=== PATIENT | male | born 1965 | race Caucasian/White ===

== ENCOUNTER 2020-03-14 14:24 | Emergency (ER) | payer OTHER ==
--- NOTE | 2020-03-14 15:28 | EDM.PDOC ---
<Ramiro Uribe - Last Filed: 03/14/20 15:12> ED HPI GENERAL MEDICAL PROBLEM - General Chief Complaint: Abdominal Pain Stated Complaint: ABDOMINAL PAIN Time Seen by Provider: 03/14/20 14:39 Source of Information: Reports: Patient - History of Present Illness INITIAL COMMENTS - FREE TEXT/NARRATIVE: 54 year-old white male comes to the emergency department this afternoon with c omplaints of sudden onset of abdominal pain and dysuria. Patient has a history of 1 episode of diverticulitis after having abdominal hernia repair. He was given antibiotics which resolved this symptoms and he has remained symptom free until this morning. Patient reports that on Saturday night he had eaten a large amount of pistachio nuts. Patient reports that he developed sudden onset of right lower abdominal pain this morning around 0100. The pain woke him up. He had no pain prior to going to bed. He had 6-7 soft nonwatery stools this morning with his last one around 0700. Patient also states that he has had difficulty voiding and that he has been unable to start a stream as well as difficulty emptying bladder fully. He last voided around 1300 today. Drinking water or fluids makes the pain in his right lower abdomen worse. Patient has no complaints of chills, fever, nausea, or abnormal muscle weakness. Lower Abdomen Pain Score (Numeric/FACES): 8 - Related Data Allergies Allergy/AdvReac Type Severity Reaction Status Date / Time codeine Allergy Severe Headache Verified 03/14/20 14:49 Home Meds: Home Meds Amoxicillin/Clavulanate K [Augmentin 875-125 MG] 1 tab PO BID #20 tablet 03/14/20 [Rx] Past Medical History HEENT History: Reports: Impaired Vision Gastrointestinal History: Reports: Diverticulosis (Cleared with antibiotics and has been symptom free until now.) Musculoskeletal History: Reports: Arthritis, Back Pain, Chronic - Past Surgical History GI Surgical History: Reports: Hernia, Inguinal Musculoskeletal Surgical History: Reports: Other (See Below) Other Musculoskeletal Surgeries/Procedures:: L leg sx Social & Family History - Family History Family Medical History: Noncontributory - Tobacco Use Smoking Status *Q: Current Every Day Smoker Years of Tobacco use: 35 Packs/Tins Daily: 1 - Caffeine Use Caffeine Use: Reports: Coffee - Recreational Drug Use Recreational Drug Use: No ED ROS GENERAL - Review of Systems Review Of Systems: See Below Constitutional: Reports: No Symptoms HEENT: Reports: No Symptoms Respiratory: Reports: No Symptoms Cardiovascular: Reports: No Symptoms GI/Abdominal: Reports: Abdominal Pain (RLQ pain that radiates throughout the lower abdomen), Bloody Stool (Streaks of gelatinous bright red blood noted in stool). Denies: Melena, Nausea, Stool Incontinence, Vomiting : Reports: Dysuria (Difficulty begining and maintaining a stream. Feels like he is not able to fully empty his bladder.), Frequency Musculoskeletal: Reports: No Symptoms Skin: Reports: No Symptoms Neurological: Reports: No Symptoms Psychiatric: Reports: No Symptoms ED EXAM, RENAL/ - Physical Exam Exam: See Below Exam Limited By: No Limitations General Appearance: Alert, WD/WN, No Apparent Distress Throat/Mouth: Normal Inspection, Normal Lips, Normal Teeth, Normal Gums, Normal Oropharynx, Normal Voice, No Airway Compromise Respiratory/Chest: No Respiratory Distress, Lungs Clear, Normal Breath Sounds, No Accessory Muscle Use, Chest Non-Tender Cardiovascular: Normal Peripheral Pulses, Regular Rate, Rhythm, No Edema, No Gallop, No JVD, No Murmur, No Rub GI/Abdominal: Normal Bowel Sounds, Distended, Tender (RLQ pain, increased pain with deep palpation to RLQ midline. ) Neurological: Alert, Oriented, CN II-XII Intact, Normal Cognition, Normal Gait, No Motor/Sensory Deficits Psychiatric: Normal Affect, Normal Mood Skin Exam: Warm, Dry, Intact, Normal Color, No Rash Course - Orders/Labs/Meds Orders: Will order CBC, CMP, CRP, UA, CT of ABD & pelvis with IV contrast, and Reglan. Departure - Departure Disposition: Home, Self-Care 01 Clinical Impression: Diverticulitis of sigmoid colon - Discharge Information Prescriptions: Amoxicillin/Clavulanate K [Augmentin 875-125 MG] 1 tab PO BID #20 tablet Instructions: Diverticulitis, [id number] Referrals: Lexi Duran MD [Primary Care Provider] - Forms: ED Department Discharge Additional Instructions: You were evaluated in the ER today regarding your lower abdominal pain. You had a CT performed, along with some lab work, which demonstrated diverticulitis of the sigmoid colon. You had 1 dose of IV antibiotics given in the ER, and will be started on oral antibiotics on outpatient basis for management of this. This will Augmentin, 1 tab BID x 10 days. This antibiotic can cause diarrhea, we recommend that you take a probiotic while using this medication. Please return to the ER at any time if symptoms change or worsen. Sepsis Event Note (ED) - Evaluation Sepsis Screening Result: No Definite Risk <America Mckee - Last Filed: 03/14/20 16:50> Course - Vital Signs Last Recorded V/S: Last Vital Signs Temp 97.7 F 03/14/20 14:46 Pulse 85 03/14/20 14:46 Resp 19 03/14/20 14:46 BP 141/90 H 03/14/20 14:46 Pulse Ox 97 03/14/20 14:46 - Orders/Labs/Meds Orders: Active Orders 24 hr Category Date Time Status Bladder Scan [RC] ASDIRECTED Care 03/14/20 15:30 Ordered Peripheral IV Care [RC] . DIRECTED Care 03/14/20 15:24 Ordered CBC WITH AUTO DIFF [HEME] Stat Lab 03/14/20 15:24 Ordered Levofloxacin/Dextrose 5%-Water [Levaquin in D5W 750 MG/ Med 03/14/20 16:35 Ordered 150 ML] 750 mg Premix Bag 1 bag IV ONETIME Sodium Chloride 0.9% [Saline Flush] Med 03/14/20 15:24 Ordered 10 ml FLUSH ASDIRECTED PRN Peripheral IV Insertion Adult [OM.PC] Routine Oth 03/14/20 15:23 Ordered Medication Orders Levofloxacin/Dextrose 750 mg/ (Premix) 150 mls @ 100 mls/hr IV ONETIME ONE Stop: 03/14/20 18:04 Sodium Chloride (Saline Flush) 10 ml FLUSH ASDIRECTED PRN PRN Reason: Keep Vein Open Last Admin: 03/14/20 16:03 Dose: 10 ml Documented by: Admin: 03/14/20 15:45 Dose: 10 ml Documented by: ALON Labs: Laboratory Tests 03/14/20 03/14/20 03/14/20 Range/Units 15:25 15:45 15:45 WBC 14.67 H (4.23-9.07) K/mm3 RBC 5.37 (4.63-6.08) M/mm3 Hgb 15.8 (13.7-17.5) gm/dl Hct 46.3 (40.1-51.0) % MCV 86.2 (79.0-92.2) fl MCH 29.4 (25.7-32.2) pg MCHC 34.1 (32.2-35.5) g/dl RDW Std Deviation 44.0 H (35.1-43.9) fL Plt Count 333 (163-337) K/mm3 MPV 8.4 L (9.4-12.3) fl Neut % (Auto) 82.2 H (34.0-67.9) % Lymph % (Auto) 10.3 L (21.8-53.1) % [place] % (Auto) 5.6 (5.3-12.2) % Eos % (Auto) 1.6 (0.8-7.0) Baso % (Auto) 0.1 (0.1-1.2) % Neut # (Auto) 12.06 H (1.78-5.38) K/mm3 Lymph # (Auto) 1.51 (1.32-3.57) K/mm3 [place] # (Auto) 0.82 (0.30-0.82) K/mm3 Eos # (Auto) 0.23 (0.04-0.54) K/mm3 Baso # (Auto) 0.02 (0.01-0.08) K/mm3 Sodium 137 (136-145) mEq/L Potassium 3.6 (3.5-5.1) mEq/L Chloride 103 (98-107) mEq/L Carbon Dioxide 25 (21-32) mEq/L Anion Gap 12.6 (5-15) BUN 15 (7-18) mg/dL Creatinine 1.0 (0.7-1.3) mg/dL Est Cr Clr Drug Dosing 102.10 mL/min Estimated GFR (MDRD) > 60 (>60) mL/min BUN/Creatinine Ratio 15.0 (14-18) Glucose 100 (74-106) mg/dL Calcium 8.9 (8.5-10.1) mg/dL Total Bilirubin 0.7 (0.2-1.0) mg/dL AST 20 (15-37) U/L ALT 33 (16-63) U/L Alkaline Phosphatase 70 (46-116) U/L C-Reactive Protein 2.9 H* (<1.0) mg/dL Total Protein 7.2 (6.4-8.2) g/dl Albumin 3.6 (3.4-5.0) g/dl Globulin 3.6 gm/dL Albumin/Globulin Ratio 1.0 (1-2) Urine Color Light yellow (Yellow) Urine Appearance Clear (Clear) Urine pH 6.0 (5.0-8.0) Ur Specific [place] 1.020 (1.005-1.030) Urine Protein Negative (Negative) Urine Glucose (UA) Negative (Negative) Urine Ketones Negative (Negative) Urine Occult Blood Negative (Negative) Urine Nitrite Negative (Negative) Urine Bilirubin Negative (Negative) Urine Urobilinogen 0.2 (0.2-1.0) Ur Leukocyte Esterase Negative (Negative) Urine RBC Not seen (0-5) /hpf Urine WBC 0-5 (0-5) /hpf Ur Squamous Epith Cells Not seen (0-5) /hpf Urine Bacteria Rare (FEW) /hpf Urine Mucus Not seen (FEW) /hpf Meds: Medications Generic Name Dose Route Start Last Admin Trade Name Erma PRN Reason Stop Dose Admin Levofloxacin/Dextrose 750 mg/ 150 mls @ 100 mls/hr 03/14/20 16:35 Premix IV 03/14/20 18:04 ONETIME ONE Sodium Chloride 10 ml 03/14/20 15:24 03/14/20 16:03 Saline Flush FLUSH 10 ml ASDIRECTED PRN Administration Keep Vein Open Discontinued Medications Generic Name Dose Route Start Last Admin Trade Name Erma PRN Reason Stop Dose Admin Iopamidol 100 ml 03/14/20 15:41 03/14/20 16:02 Isovue-300 (61%) IVPUSH 03/14/20 15:42 100 ml ONETIME ONE Administration Iopamidol 25 ml 03/14/20 15:41 03/14/20 16:02 Isovue-300 (61%) IVPUSH 03/14/20 15:42 25 ml ONETIME ONE Administration Metoclopramide HCl 10 mg 03/14/20 15:29 Reglan IVPUSH 03/14/20 15:30 ONETIME ONE Sodium Chloride 10 ml 03/14/20 15:41 Saline Flush FLUSH 03/14/20 15:42 ONETIME ONE - Re-Assessments/Exams Free Text/Narrative Re-Assessment/Exam: 03/14/20 16:06 I have read and reviewed the student's HPI and examined the patient and agree with BOBBY Mcintosh-student. Have ordered abdomen pelvis CT with IV contrast, basic labs, and IV to be placed at this time, patient is denying nausea or pain meds. 03/14/20 16:37 Patient's laboratory evaluation demonstrates a white count of 14.67 with 80% neutrophils on auto differential, metabolic panel essentially normal, CRP is 2.9 which is elevated. Urinalysis is negative. Abdomen pelvis CT demonstrates bowel wall thickening within the sigmoid colon with surrounding inflammatory change, felt compatible to diverticulitis within the sigmoid colon. Patient will be given 750 mg IV Levaquin for initial management. Patient will be sent home with some pain medication and oral antibiotics after the IV medication has been given time to run. Departure - Departure Time of Disposition: 16:39 Condition: Good - Discharge Information *PRESCRIPTION DRUG MONITORING PROGRAM REVIEWED*: Yes *COPY OF PRESCRIPTION DRUG MONITORING REPORT IN PATIENT MARIANO: No Sepsis Event Note (ED) - Focused Exam Vital Signs: Vital Signs Temp Pulse Resp BP Pulse Ox 03/14/20 14:46 97.7 F 85 19 141/90 H 97 - My Orders Last 24 Hours: My Active Orders 03/14/20 15:23 Peripheral IV Insertion Adult [OM.PC] Routine 03/14/20 15:24 Peripheral IV Care [RC] . DIRECTED CBC WITH AUTO DIFF [HEME] Stat Sodium Chloride 0.9% [Saline Flush] 10 ml FLUSH ASDIRECTED PRN 03/14/20 15:30 Bladder Scan [RC] ASDIRECTED 03/14/20 16:35 Levofloxacin/Dextrose 5%-Water [Levaquin in D5W 750 MG/150 ML] 750 mg Premix Bag 1 bag IV ONETIME - Assessment/Plan Last 24 Hours: My Active Orders 03/14/20 15:23 Peripheral IV Insertion Adult [OM.PC] Routine 03/14/20 15:24 Peripheral IV Care [RC] . DIRECTED CBC WITH AUTO DIFF [HEME] Stat Sodium Chloride 0.9% [Saline Flush] 10 ml FLUSH ASDIRECTED PRN 03/14/20 15:30 Bladder Scan [RC] ASDIRECTED 03/14/20 16:35 Levofloxacin/Dextrose 5%-Water [Levaquin in D5W 750 MG/150 ML] 750 mg Premix Bag 1 bag IV ONETIME
[2020-03-14] MEDS ORDERED: Metoclopramide 10 MG/2 ML SDV IVPUSH ONE (15:29)
[2020-03-14] MEDS ORDERED: Sodium Chloride 0.9% 10 ML Syringe FLUSH ONE (15:41)
[2020-03-14] MEDS ORDERED: Iopamidol 612 MG/ML 50 ML SDV IVPUSH ONE (15:41)
[2020-03-14] MEDS ORDERED: Iopamidol 612 MG/ML 100 ML Bottle IVPUSH ONE (15:41)
[2020-03-14] MEDS: Sodium Chloride 0.9% 10 ML Syringe FLUSH PRN ×2 (15:45→16:03)
--- NOTE | 2020-03-14 16:25 | CT ---
CT abdomen and pelvis Technique: Multiple axial sections were obtained from above the dome of the diaphragm inferiorly through the pubic symphysis. Intravenous contrast was utilized. No oral contrast has been given. Findings: Areas of pleural thickening are noted within the right lung base with adjacent parenchymal scarring. Liver contains no focal abnormality. Spleen appears within normal limits. Adrenal glands show no nodule. Gallbladder contains no calcified gallstones. Pancreas shows no abnormality. Kidneys show symmetric contrast enhancement without hydronephrosis or discrete mass. No retroperitoneal adenopathy or mesenteric abnormalities are seen. There is an area of bowel wall thickening within the sigmoid colon with surrounding inflammatory change. Findings most likely due to diverticulitis as diverticuli are seen in this area. Appendix is seen which is normal in size. Bone window settings shows mild scattered degenerative change within the spine. Delayed images shows contrast within the distal ureters and within the bladder. Impression: 1. Bowel wall thickening within the sigmoid colon with surrounding inflammatory change. As mentioned above, these findings are felt to be due to diverticulitis as diverticuli are seen in this region. 2. Other findings believed to be nonacute as noted above. Diagnostic code #3 This report was dictated in MDT
[2020-03-14] MEDS ORDERED: Levofloxacin/Dextrose 5%-Water 750 MG in Premix Bag 1 BAG IV ONE (16:35)
== END 2020-03-14 18:36 | disposition home or self-care (01) ==
LOC: JD.ED 14:24
DX: K57.32 Diverticulitis of large intestine without perforation or abscess without bleeding (principal); F17.210 Nicotine dependence, cigarettes, uncomplicated; Z88.5 Allergy status to narcotic agent
CPT/HCPCS: 36415; 51798; 74177; 80053; 81001; 85025; 86140; 96365; 96366; 99284; J1956; Q9967; 99283

== ENCOUNTER 2021-06-12 13:58 | Emergency (ER) | payer OTHER ==
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
[2021-06-12] MEDS ORDERED: Iopamidol 612 MG/ML 100 ML Bottle IVPUSH ONE (16:38)
[2021-06-12] MEDS ORDERED: Sodium Chloride 0.9% 10 ML Syringe FLUSH ONE (16:38)
--- NOTE | 2021-06-13 06:18 | CR ---
Chest: PA and lateral views of the chest were obtained. Comparison: Previous chest CT of 05/31/16. Linear densities are seen within the right lung base. Slight pleural thickening is seen within the right lung base possibly due to pleural effusion. Lungs otherwise are clear. Heart size and mediastinum are normal. Bony structures appear within normal limits for the patient's age. Impression: 1. Probable small right-sided pleural effusion and linear densities within the right lung base most likely due to areas of atelectasis. Diagnostic code #3
--- NOTE | 2021-06-13 06:51 | CT ---
CT chest Technique: Multiple axial sections through the chest were obtained. Intravenous contrast was utilized. Reconstructed coronal and sagittal images were obtained. Comparison: Prior chest x-ray performed earlier on the same day (4:01 PM). Prior chest CT study of 05/31/16 is also available. Findings: Small right-sided pleural effusion is seen. Lung window settings show mild areas of density within the right lung base. Small 5 mm nodular density is seen within the right lung base. Left lung is clear. Thoracic aorta shows no aneurysm. No mediastinal adenopathy is seen. No pericardial thickening is noted. No axillary adenopathy is seen. Visualized upper abdominal structures show nothing acute. Bone window settings were reviewed which show mild scattered degenerative change within the spine. No acute osseous finding is seen. Impression: 1. Small right-sided pleural effusion. No etiology is seen for the pleural effusion. 2. Slight density within the right base most likely representing mild atelectasis or scarring. No definite pneumonia is appreciated. 3. Small 5 mm nodule within the right lung base which is believed to be present on previous CT study and therefore incidental. Diagnostic code #3 I agree with preliminary report from [facility], finalized on 06/12/21, 8:18 PM CDT, code 1
== END 2021-06-12 20:00 | disposition home or self-care (01) ==
LOC: JD.ED 13:58
DX: J18.9 Pneumonia, unspecified organism (principal); J90 Pleural effusion, not elsewhere classified; J01.90 Acute sinusitis, unspecified; E78.00 Pure hypercholesterolemia, unspecified; I10 Essential (primary) hypertension; Z88.5 Allergy status to narcotic agent; Z72.0 Tobacco use; Z68.34 Body mass index [BMI] 34.0-34.9, adult; Z20.822 Contact with and (suspected) exposure to COVID-19
CPT/HCPCS: 36415; 71046; 71260; 80053; 84484; 85025; 85379; 86140; 87635; 93005; 99285; Q9967; U0002